=== PATIENT | male | born 1990 | race Caucasian/White ===

== ENCOUNTER 2018-01-21 22:37 | Emergency (ER) | payer OTHER ==
[2018-01-21 22:42] VITALS: TEMP 98.4
--- NOTE | 2018-01-21 23:18 | ED ---
Male Urogenital HPI - General Chief complaint: Urogenital Stated complaint: Male Time Seen by Provider: 01/21/18 22:48 Source: patient Mode of arrival: ambulatory Limitations: no limitations - History of Present Illness Initial comments: This patient is 27-year-old man who presents to be evaluated for left testicular pain and swelling. This is been going on for 2 days. The patient thought he may have inadvertently injured the testicle when he was wrestling with his son, but he does not recall any trauma. He states that when the symptoms did not show any improvement he decided to be seen here. She states she is having aching discomfort and swelling of the left testicle, constant and moderate severity. It worsens if he touches the testicle or if he walks. He denies any associated symptoms, including no fever or chills, no abdominal pain. He has not had change in urination, he has not had urethral discharge, he does not have any symptoms to the legs. No rash. No new sexual contacts. MD Complaint: testicle pain, testicle swelling Onset/Timin -: days(s) Location: left testicle Radiation: none Severity: moderate Quality: aching Consistency: constant Improves with: rest Worsens with: palpation, other (Walking) Reports: denies other symptoms - Related Data Home Medications Medication Instructions Recorded Confirmed Acetaminophen Tab [Tylenol Tab] 650 mg PO Q4H PRN 01/21/18 01/21/18 Ibuprofen [Advil] 200 mg PO Q8HR PRN 01/21/18 01/21/18 Previous Rx's Medication Instructions Recorded Ibuprofen [Motrin] 600 mg PO Q8HR PRN #20 tab 01/21/18 Allergies Allergy/AdvReac Type Severity Reaction Status Date / Time No Known Allergies Allergy Verified 01/21/18 23:05 Review of Systems ROS Statement: Those systems with pertinent positive or pertinent negative responses have been documented in the HPI. ROS Other: All systems not noted in ROS Statement are negative. Constitutional: Denies: fever, chills Respiratory: Denies: cough, dyspnea Cardiovascular: Denies: chest pain, edema Gastrointestinal: Denies: abdominal pain, nausea, vomiting, diarrhea, constipation Genitourinary: Reports: testicular pain, testicular mass. Denies: dysuria, frequency, hematuria, discharge Musculoskeletal: Denies: back pain Skin: Denies: rash Neurological: Denies: headache, weakness, numbness Past Medical History Past Medical History: No Reported History History of Any Multi-Drug Resistant Organisms: None Reported Past Surgical History: No Surgical Hx Reported Past Psychological History: No Psychological Hx Reported Smoking Status: Current every day smoker Past Alcohol Use History: Occasional Past Drug Use History: Marijuana General Exam Limitations: no limitations General appearance: alert, in no apparent distress Head exam: Present: atraumatic, normocephalic ENT exam: Present: normal oropharynx Respiratory exam: Present: normal lung sounds bilaterally. Absent: respiratory distress, wheezes, rales, rhonchi, stridor Cardiovascular Exam: Present: regular rate, normal rhythm, normal heart sounds. Absent: systolic murmur, diastolic murmur, rubs, gallop GI/Abdominal exam: Present: soft, normal bowel sounds. Absent: distended, tenderness, guarding, rebound, rigid, mass, pulsatile mass, hernia exam: Present: normal inspection, testicular tenderness, vertical testicular lie, circumcision. Absent: urethral discharge Extremities exam: Present: normal inspection, normal capillary refill. Absent: pedal edema, calf tenderness Back exam: Present: normal inspection. Absent: CVA tenderness (R), CVA tenderness (L) Neurological exam: Present: alert Skin exam: Present: warm, dry, intact, normal color. Absent: rash Course Vital Signs 01/21/18 22:39 Temperature 98.4 F Pulse Rate 70 Respiratory 17 Rate Blood Pressure 141/92 O2 Sat by Pulse 100 Oximetry Medical Decision Making - Lab Data Lab Results 01/21/18 Range/Units 23:05 Urine Color Yellow Urine Appearance Clear (Clear) Urine pH 5.5 (5.0-8.0) Ur Specific [place] 1.019 (1.001-1.035) Urine Protein Negative (Negative) Urine Glucose (UA) Negative (Negative) Urine Ketones Negative (Negative) Urine Blood Negative (Negative) Urine Nitrite Negative (Negative) Urine Bilirubin Negative (Negative) Urine Urobilinogen <2.0 (<2.0) mg/dL Ur Leukocyte Esterase Small H (Negative) Urine RBC 2 (0-5) /hpf Urine WBC 18 H (0-5) /hpf Ur Squamous Epith Cells <1 (0-4) /hpf Urine Mucus Rare H (None) /hpf Disposition Clinical Impression: Epididymitis Disposition: HOME SELF-CARE Condition: Good Instructions: Epididymitis (ED) Prescriptions: Ibuprofen [Motrin] 600 mg PO Q8HR PRN #20 tab PRN Reason: Pain Is patient prescribed a controlled substance at d/c from ED?: No Referrals: Sunil Sanchez MD [REFERRING] - 1-2 days Moi Epperson MD [STAFF PHYSICIAN] - 1-2 days
--- NOTE | 2018-01-21 23:21 | XR ---
EXAMINATION TYPE: XR KUB portable DATE OF EXAM: 01/21/2018 COMPARISON: NONE HISTORY: Testicular pain TECHNIQUE: 2 views upright FINDINGS: There is no sign of intestinal obstruction or pneumoperitoneum. Fecal pattern is normal. Sandra ng bases are clear. There are no pathologic calcifications. IMPRESSION: Nonacute abdomen.
[2018-01-21 23:23] LABS: Appearance,Urine Clear (Clear); Bilirubin,Urine Negative (Negative); Blood,Urine Negative (Negative); Color,Urine Yellow; Glucose,Urine (UA) Negative (Negative); Ketones,Urine Negative (Negative); Leukocyte Esterase,Urine Small (Negative); Mucus,Urine Rare /hpf; Nitrite,Urine Negative (Negative); PH, Urine 5.5 (5.0-8.0); Protein,Urine Negative (Negative); RBC,Urine 2 /hpf (0-5); Specific Gravity,Urine 1.019 (1.001-1.035); Squamous Epithelial Cell,Urine <1 /hpf (0-4); Urobilinogen,Urine <2.0 mg/dL (<2.0); WBC,Urine 18 /hpf (0-5)
--- NOTE | 2018-01-21 23:45 | US ---
EXAMINATION TYPE: US scrotum with doppler. Grayscale and color Doppler Duplex imaging performed of t he scrotum. DATE OF EXAM: 01/21/2018 COMPARISON: NONE CLINICAL HISTORY: L testicular pain. Left side pain. EXAM MEASUREMENTS: TESTICLES: Right Testicle: 3.3 x 1.9 x 3.6 cm Left Testicle: 4.1 x 1.9 x 2.7 cm EPIDIDYMIS HEAD: Right Epididymis: 2.7 x 1.5 x 2.3 cm Left Epididymis: 2.3 x 1.3 x 1.9 cm Doppler performed to assess for testicular vascularity; good bilateral color flow and waveforms are s een. There is no evidence of testicular torsion. Presence of hydroceles: No Presence of varicoceles: No Right epididymal cyst 2.7 x 1.5 x 2.3cm. Enlarged heterogenous left epididymis with increased vascula rity. IMPRESSION: No testicular torsion or mass. Enlarged hyperemic left epididymis that could relate to ep ididymitis. Large simple right epididymal cyst.
[2018-01-21] MEDS ORDERED: AZITHROMYCIN 250 MG TAB PO STA (23:51)
[2018-01-21] MEDS ORDERED: cefTRIAXone 250 MG VIAL IM STA (23:51)
[2018-01-21 23:57] VITALS: BP 128/76; PULSE 74; RESP 18
[2018-01-23 14:01] LABS: C. trachomatis,PCR Positive (Neg,Equiv); Chlamydia trachomatis Source Urine; N. gonorrhoeae,PCR Negative (Neg,Equiv); Neisseria Source Urine
== END 2018-01-22 00:11 | disposition home or self-care (01) ==
LOC: EC 22:37
DX: N45.1 Epididymitis (principal); F17.200 Nicotine dependence, unspecified, uncomplicated
CPT/HCPCS: 74018; 76870; 81001; 87491; 87591; 93975; 96372; 99284